=== PATIENT | female | born 1965 | race African-American/Black ===

== ENCOUNTER 2016-11-28 09:00 | Emergency (ER) ==
[2016-11-28] MEDS ORDERED: CATAPRES PO ONE (09:19)
[2016-11-28] MEDS ORDERED: TYLENOL PO ONE (09:26)
--- NOTE | 2016-11-28 09:33 | PROVIDER DOCUMENTATION ---
HPI-General Adult - General Source: patient - History of Present Illness -Gen Adult Nature of Presenting Problems: 51 yof presents to ed with complaint of headache and vomiting.Pt states she vomiting began this morning and headache started with vomiting.Pt states she was sent to ed from work because b/p was elevated.Pt was offered amtrex shot and declined. Location of Pain/Injury: reports: head, abdomen Pain Radiation: reports: no radiation Quality of Pain: reports: aching Onset/Duration: reports: this morning Timing: reports: still present Context/Activities at Onset: reports: none Modifying Factors: improves with: movement (headache worse when looking up,down and turning head), other Associated Symptoms: reports: headaches, vomiting. denies: diarrhea, nausea Similar Symptoms Previously?: No Recently seen or treated by another doctor?: No <Sandra Correa - Last Filed: 11/28/16 10:57> <Larry Washington - Last Filed: 11/28/16 10:59> - General Chief Complaint: General Adult Stated Complaint: NAUSEA/ELEVATED BP Time Seen by Provider: 11/28/16 09:18 Allergies/Adverse Reactions: Patient Allergies Allergy/AdvReac Type Severity Reaction Status Date / Time No Known Allergies Allergy Verified 11/28/16 09:36 Home Medications: Home Medication List Medication Instructions Recorded Confirmed Last Taken Type Cetirizine HCl [Zyrtec] 10 mg PO QAM 11/28/16 11/28/16 11/27/16 07:00 History Review of Systems - Adult - REVIEW OF SYSTEMS - ADULT Constitutional: denies: chills, fever, fatique Eyes: reports: no symptoms reported Ears, Nose, Mouth & Throat: reports: no symptoms reported Cardiovascular: reports: other (tachycardia). denies: chest pain, palpitations Respiratory: reports: no symptoms reported Gastrointestinal: reports: abdominal pain, vomiting. denies: nausea Genitourinary: reports: no symptoms reported Musculoskeletal: reports: no symptoms reported Integumentary: reports: no symptoms reported Neurological: reports: headache/migraines. denies: dizziness/vertigo, numbness Psychiatric: reports: no symptoms reported Endocrine: reports: no symptoms reported Hematologic/Lymphatic: reports: no symptoms reported Allergic/Immunologic: reports: no symptoms reported All Other Systems: Reviewed and Negative <Sandra Correa - Last Filed: 11/28/16 10:57> Past History - Adult - PAST MEDICAL HISTORY-ADULT Review of Records: reports: Old Records Reviewed, Nursing Assessment Review, Medications Reviewed Major Childhood Illnesses: reports: denies history - PRIOR SURGERIES/PROCEDURES Surgical/Procedure History: reports: BTL - SOCIAL HISTORY Smoking: cigarettes, greater than 1 pack/day Provider spent 3-5 mins advising pt. on dangers of tobacco.: Discussed manners to quit use, and f/u contacts for add'l counseling. Substance Use: denies Alcohol Use Frequency: never Living Situation: family <Sandra Correa - Last Filed: 11/28/16 10:57> Physical Exam-General - PHYSICAL EXAM-ADULT Initial Vital Signs Reviewed: Yes - CONSTITUTIONAL General Appearance: appears well, alert, no apparent distress - EYES Eyes: PERRL/EOMI, pink conjunctivae, fundi clear, no AV nicking - HEAD, EARS, NOSE, MOUTH & THROAT HENMT: normocephalic/atraumatic, moist mucous membranes, normal ENT inspection, TMs normal, pharynx normal - NECK Neck: non-tender, full range of motion, supple, normal inspection - RESPIRATORY Respiratory: chest non-tender, lungs clear, normal breath sounds, no pleuratic chest pain, no respiratory distress, no accessory muscle use - CARDIOVASCULAR Cardiovascular: normal peripheral pulses, regular rate, rhythm, no edema, no gallop, no JVD, no murmur - GASTROINTESTINAL (ABDOMEN) Abdominal Exam: normal bowel sounds, non tender, soft, no organomegaly, no pulsatile mass - LYMPHATIC Lymphatic: no adenopathy - MUSCULOSKELETAL Back Exam: normal inspection, no CVA tenderness, no vertebral tenderness Extremity: normal range of motion, normal gait, normal inspection, no pedal edema, no calf tenderness, tenderness (occipital) - SKIN Integumentary: normal color, normal turgor, warm/dry - NEUROLOGIC 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, grossly normal, no motor/sensory deficits - PSYCHIATRIC Psych/Mental Status: normal mood/affect, normal thought content, normal thought process, oriented x 3 <Sandra Correa - Last Filed: 11/28/16 10:57> Progress - PLAN OF CARE/RESULTS Progress/Plan/Lab Results: Laboratory Tests 11/28/16 11/28/16 09:40 09:40 WBC 3.12 L RBC 4.11 L Hgb 13.5 Hct 40.1 MCV 97.6 MCH 32.8 H MCHC 33.7 RDW Std Deviation 13.1 Plt Count 243 MPV 9.9 Immature Gran % (Auto) 0.0 Neut % (Auto) 56.8 Lymph % (Auto) 30.1 Gaston % (Auto) 11.2 H Eos % (Auto) 1.6 Baso % (Auto) 0.3 Immature Gran # (Auto) 0.00 Neut # (Auto) 1.77 Lymph # (Auto) 0.94 L Gaston # (Auto) 0.35 Eos # (Auto) 0.05 Baso # (Auto) 0.01 Sodium 146 H Potassium 3.9 Chloride 105 Carbon Dioxide 25 Anion Gap 16 BUN 12 Creatinine 0.9 Estimated GFR/1.73 m2 > 60 BUN/Creatinine Ratio 13 Glucose 106 H Calculated Osmolality 291 Calcium 9.3 Total Bilirubin 0.21 AST 25 ALT 16 Alkaline Phosphatase 89 Total Protein 7.2 Albumin 4.3 Globulin 2.9 Albumin/Globulin Ratio 1.5 Orders Category Date Time Status CBC WITH ELECTRONIC DIFF [HEME] Stat Lab 11/28/16 09:40 Completed CMP [COMPREHENSIVE METABOLIC PANEL] [CHEM] Stat Lab 11/28/16 09:40 Completed Acetaminophen [Tylenol] Med 11/28/16 09:26 Discontinued 650 mg PO NOW ONE Clonidine [Catapres] Med 11/28/16 09:19 Discontinued 0.2 mg PO NOW ONE Vital Signs - 24 hr 11/28/16 09:02 Temperature 97.4 F L Pulse Rate 77 Respiratory 18 Rate Blood Pressure 183/107 O2 Sat by Pulse 98 Oximetry <Sandra Correa - Last Filed: 11/28/16 10:57> - REASSESSMENT Reassessment #1 Time Reassessed: 10:57 (VILLARREAL gone after tylenol/ clonidine) Status: improving <Larry Washington - Last Filed: 11/28/16 10:59> Departure - Departure Time of Disposition Order: 09:45 Certified Medical Emergency: Emergent <Sandra Correa - Last Filed: 11/28/16 10:57> - Departure Time of Disposition Order: 10:58 Certified Medical Emergency: Emergent <Larry Washington - Last Filed: 11/28/16 10:59> - Departure DIAGNOSIS: Headache Qualifiers: Headache type: unspecified Headache chronicity pattern: acute headache Intractability: not intractable Qualified Code(s): R51 - Headache Disposition: HOME 01 Condition: Stable Additional Instructions: ED Follow Up Instructions: You have been treated by a care provider in the Emergency Department. These instructions are being provided to you so you can have an understanding of how to care for yourself upon discharge. Upon discharge from the Emergency Department, you are responsible for making arrangements for follow-up care by a physician of your choice. Take all prescribed medications as directed. Return to the Emergency Department immediately for any new or worsening symptoms. You may call the Physician Referral phone number at [phone] to obtain a list of Physicians who are taking new patients. Referrals: None,PCP [Primary Care Provider] - Instructions: Migraine Headache, [id number] Attestation - Scribe Verification/Attestation Scribe:: Sandra Correa Acting as Scribe for:: Larry Washington Scribe documention review:: This chart was documented by a scribe and accurately reflects the service the provider performed and the decisions made by the provider. - Physician/ ALEKS Attestation Patient care was provided by Advanced Practice Provider:: Yes Advanced Practice Provider documentation review:: The Mid-level provider documentation, treatment plan and medical decision making was reviewed by the physician who agrees with all treatment and medical decision making by the MLP. <Sandra Correa - Last Filed: 11/28/16 10:57> Physician Attestation
[2016-11-28 09:56] LABS: MANUAL DIFF NEEDED? NO
[2016-11-28 10:00] LABS: BASO% 0.3 % (0.0-0.8); EOS# 0.05 X1000 (0.0-0.7); EOS% 1.6 % (0.0-10.0); HEMATOCRIT 40.1 % (37.0-47.0); HEMOGLOBIN 13.5 g/dL (12.0-16.0); LYMPH# 0.94 X1000 (1.2-3.4); LYMPH% 30.1 % (20.5-51.1); MCH 32.8 PG (27-31); MCHC 33.7 g/dL (33-37); MCV 97.6 FL (81-99); MONO# 0.35 X1000 (0.11-0.59); MONO% 11.2 % (1.7-9.3); MPV 9.9 FL (7.4-10.4); NEUT% 56.8 % (42.2-75.2); PLT 243 X1000 (130-400); RBC 4.11 XMIL (4.2-5.4)
[2016-11-28 10:24] LABS: AGAP 16; ALBUMIN 4.3 g/dL (3.5-5.0); ALKALINE PHOSPHATASE 89 U/L (32-104); BUN 12 mg/dL (8-22); CALCIUM 9.3 mg/dL (8.8-10.2); CHLORIDE 105 mmol/L (98-107); COSMO 291; GOT 25 U/L (10-30); GPT 16 U/L (10-36); POTASSIUM 3.9 mmol/L (3.5-5.1); SODIUM 146 mmol/L (136-145); TCO2 25 mmol/L (25-35); TOTAL BILIRUBIN 0.21 mg/dL (0.20-1.00); TOTAL PROTEIN 7.2 g/dL (6.3-8.3)
[2016-11-28] MEDS ORDERED: NORVASC PO SCH (12:00)
[2016-11-28] MEDS ORDERED: PRINZIDE 20/12.5MG PO ONE (12:00)
[2016-11-28 12:07] VITALS: BP 180/110
== END 2016-11-28 12:30 | disposition home or self-care (01) ==
LOC: ED 09:00
DX: R51 Headache (principal); R11.10 Vomiting, unspecified; R00.0 Tachycardia, unspecified; R10.9 Unspecified abdominal pain; F17.210 Nicotine dependence, cigarettes, uncomplicated; Z71.6 Tobacco abuse counseling
CPT/HCPCS: 80053; 85025